=== PATIENT | female | born 1935 | race Caucasian/White ===

== ENCOUNTER → 2018-01-22 | Outpatient (CLI) | payer MEDICARE, OTHER | END | disposition home or self-care (01) | LOC: KCIC 08:47 | DX: I51.7 Cardiomegaly (principal); I70.0 Atherosclerosis of aorta; R91.1 Solitary pulmonary nodule | CPT/HCPCS: 71046 ==

== ENCOUNTER → 2018-02-12 | Outpatient (CLI) | payer MEDICARE, OTHER | END | disposition home or self-care (01) | LOC: KCIC CT 09:44 | DX: I77.810 Thoracic aortic ectasia (principal); M47.894 Other spondylosis, thoracic region; J84.10 Pulmonary fibrosis, unspecified; E07.89 Other specified disorders of thyroid; I51.7 Cardiomegaly; R91.8 Other nonspecific abnormal finding of lung field | CPT/HCPCS: 71250 ==

== ENCOUNTER → 2018-03-19 | Outpatient (CLI) | payer MEDICARE, OTHER ==
[2015-01-13 09:18] VITALS: BP 149/64
[~2018-03-19] MED LIST: BENA20TA4 PO; CALC667C6 PO; METO100T7 PO; MULT1TAB6 PO
--- NOTE | 2018-03-19 17:10 | CARD ---
MR#: [id number] Date of Study: 03/19/2018 Ordering Physician: JAYSON WASHINGTON, Referring Physician: JAYSON WASHINGTON, Tech: Cielo Moy APPROVED REPORT EXAM: Two-dimensional and M-mode echocardiogram with Doppler and color Doppler. Other Information Quality : AverageHR: 76bpm INDICATION Dyspnea Mitral Valve Disease Murmur Mitral Valve Insuffiencey, Holosystolic murmur 2D DIMENSIONS RVDd1.8 (2.9-3.5cm)Left Atrium(2D)4.1 (1.6-4.0cm) IVSd0.9 (0.7-1.1cm)Aortic Root(2D)2.8 (2.0-3.7cm) LVDd6.5 (3.9-5.9cm)LVOT Diameter2.2 (1.8-2.4cm) PWd1.1 (0.7-1.1cm)LVDs3.7 (2.5-4.0cm) FS (%) 43.4 %SV160.0 ml LVEF(%)65.0 (>50%) Aortic Valve AoV Peak Pascual.202.0cm/sAoV VTI40.4cm AO Peak GR.15.6mmHgLVOT Peak Pascual.96.4cm/s AO Mean GR.7mmHgAVA (VMAX)1.86cm2 Mitral Valve MV E Vekvdfaj729.2cm/sMV E Peak Gr.97mmHg MV DECEL [id number] A Jgxiqnvx14.0cm/s E/A Ratio2.0 Tricuspid Valve TR P. Qsxadlta258ri/sRAP [id number] TR Peak Gr.28krRqHEZL29ziGk LEFT VENTRICLE The Left Ventricle is moderately dilated. There is normal left ventricular wall thickness. The left v entricular systolic function is normal and the ejection fraction is within normal range. The Ejection Fraction is 65%. There is normal LV segmental wall motion. Transmitral Doppler flow pattern is restr ictive diastolic dysfunction. RIGHT VENTRICLE The right ventricle is mildly to moderately dilated. There is normal right ventricular wall thickness . The right ventricular systolic function is normal. ATRIA The left atrium is moderately dilated. The right atrium is mildly dilated. AORTIC VALVE The aortic valve is calcified but opens well. Doppler and Color Flow revealed mild aortic regurgitati on. There is no significant aortic valvular stenosis. Calculated aortic valve area is 1.8 cm2 with ma ximum pressure gradient of 16.31 mmHg and mean pressure gradient of 7.2 mmHg. MITRAL VALVE The mitral valve is thickened but opens well. A mild mitral valve prolapse is present. Cannot rule ou t a partially flail mitral valve leaflet There is no mitral valve stenosis. Doppler and Color-flow re vealed moderate mitral regurgitation. TRICUSPID VALVE The tricuspid valve is normal in structure Doppler and Color Flow revealed mild to moderate tricuspid regurgitation. Estimated PAP 55mmHg. PULMONIC VALVE The pulmonary valve is normal in structure Doppler and Color Flow revealed trace pulmonic valvular re gurgitation. GREAT VESSELS The aortic root is normal in size. The IVC is dilated and collapses >50% with inspiration. PERICARDIAL EFFUSION There is no evidence of significant pericardial effusion. Critical Notification Critical Value: No <Conclusion> The left ventricular systolic function is normal and the ejection fraction is within normal range. T he Ejection Fraction is 65%. Transmitral Doppler flow pattern is restrictive diastolic dysfunction. The Left Ventricle is moderately dilated. The right ventricle is mildly to moderately dilated. The left atrium is moderately dilated. The right atrium is mildly dilated. Doppler and Color Flow revealed mild aortic regurgitation. There is no significant aortic valvular stenosis. Calculated aortic valve area is 1.8 cm2 with maximum pressure gradient of 16.31 mmHg and mean pressur e gradient of 7.2 mmHg. A mild mitral valve prolapse is present. Cannot rule out a partially flail mitral valve leaflet Doppler and Color-flow revealed moderate mitral regurgitation. Doppler and Color Flow revealed mild to moderate tricuspid regurgitation. Estimated PAP 55mmHg. Doppler and Color Flow revealed trace pulmonic valvular regurgitation. There is no evidence of significant pericardial effusion. Signed by : Jayson Washington MD Electronically Approved : 03/19/2018 17:09:30
== END | disposition home or self-care (01) ==
LOC: ECHO 09:19
PROVIDERS: ATTEND Internal Medicine Cardiovascular Disease
DX: I08.3 Combined rheumatic disorders of mitral, aortic and tricuspid valves (principal)
CPT/HCPCS: 93306